=== PATIENT | female | born 1965 | race African-American/Black ===

== ENCOUNTER 2023-05-29 23:03 | Observation (INO) | payer OTHER ==
[~2023-05-29 23:03] MED LIST: Iopamidol-370 76% 500 ML MDV (1 ML CHARGE) ONE
[2023-05-29 23:32] LABS: #Monocytes 0.4 thou/uL (0.11-0.59); #Neutrophils 1.7 thou/uL (1.40-6.50); %Basophils 0.6 % (0.0-1.0); %Eosinophils 0.6 % (0.0-10.0); %Lymphocytes 37.4 % (21.0-51.0); %Monocytes 12.9 % (0.0-10.0); %Neutrophils 48.5 % (42.0-75.0); Hematocrit 34.3 % (36.0-47.0); Hemoglobin 11.3 g/dL (12.0-16.0); Mean Corpuscular HGB CONC 32.9 g/dL (32.0-36.0); Mean Corpuscular Hemoglobin 27.9 pg (27.0-31.0); Mean Corpuscular Volume 84.7 fl (78.0-98.0); Mean Platelet Volume 9.1 fL (7.4-10.4); Platelet Count 158 10x3/uL (130-400); RBC Distribution Width 14.9 % (11.5-14.5); Red Blood Cell (RBC) Count 4.05 mill/uL (4.20-5.40); White Blood Cell (WBC) Count 3.4 10x3/uL (4.8-10.8)
[2023-05-29 23:57] LABS: ALT (SGPT) 12 U/L (8-55); AST (SGOT) 18 U/L (5-34); Albumin 3.9 g/dL (3.5-5.0); Alkaline Phosphatase 70 U/L (40-110); Anion Gap 15 mmol/L (10-20); BUN (Urea Nitrogen) 13 mg/dL (9.8-20.1); Bilirubin, Total 0.3 mg/dL (0.2-1.2); Calc. Creatinine Clearance 0 mL/min (70-130); Carbon Dioxide 17 mmol/L (22-29); Chloride 113 mmol/L (98-107); Estimated GFR 91; Globulin 2.7 g/dL (2.4-3.5); Glucose 103 mg/dL (70-105); Magnesium 1.7 mg/dL (1.6-2.6); Potassium 3.5 mmol/L (3.5-5.1); Protein, Total 6.6 g/dL (6.0-8.3); Sodium 141 mmol/L (136-145)
[2023-05-29 23:58] LABS: Troponin I Less than 0.010 ng/mL (< 0.028)
[2023-05-30 00:42] LABS: Calcium 9.4 mg/dL (7.8-10.44)
[2023-05-30] MEDS ORDERED: Acetaminophen 500 MG TAB ONE (01:47)
[2023-05-30] MEDS ORDERED: Magnesium 2 GM/50 ML BAG (IN WATER) ONE (01:47)
[2023-05-30 02:27] LABS: Bacteria/HPF 1+ HPF (None Seen); Bilirubin Negative (Negative); Blood, Urine Negative (Negative); CAUTI Indications for Culture Alt mental st,lethar; Calcium Oxalate Crystals Rare HPF (None Seen); Clarity Clear (Clear); Glucose, Urine (Dipstick) Normal (Negative); Ketone, Urine 10 mg/dL (Negative); Leukocyte Negative Leu/uL (Negative); Nitrite Negative (Negative); Protein, Urine (Dipstick) 50 mg/dL (Neg-Trace); RBC/HPF 21-50 HPF (0-3); Urobilinogen Normal mg/dL (Less than 2); WBC/HPF None Seen HPF (0-3); pH, Urine 6.5 (5.0-9.0)
[2023-05-30 02:28] LABS: Specific Gravity, Urine 1.062 (1.002-1.036)
[2023-05-30 02:29] LABS: Urine Culture Reflex No No
[2023-05-30 02:35] LABS: Amphetamine Not Detected (NotDetected); Barbiturates Screen Not Detected (NotDetected); Benzodiazepine Screen Detected (NotDetected); Cocaine Metabolite Screen Not Detected (NotDetected); Methadone Not Detected (NotDetected); Methamphetamine Not Detected (NotDetected); Opiate Screen Detected (NotDetected); Oxycodone Screen Not Detected (NotDetected); Phencyclidine (PCP) Not Detected (NotDetected); THC/Cannabinoid Screen Not Detected (NotDetected); Tricyclic Screen Not Detected (NotDetected)
[2023-05-30 02:49] LABS: Acetaminophen Less than 10 mcg/mL (10.0-30.0); Alcohol Less than 10.0 mg/dL (Less than 10); Salicylate Less than 8.0 mg/dL (15.0-30.0)
[2023-05-30] MEDS ORDERED: Ondansetron ODT 4 MG TAB PO PRN (03:15)
[2023-05-30] MEDS ORDERED: Ondansetron PF 4 MG/2 ML Vial IVP PRN (03:15)
[2023-05-30] MEDS ORDERED: HumaLOG 300 UNITS/3 ML VIAL SC PRN ×2 (03:46)
[2023-05-30] MEDS ORDERED: Glucagon 1 MG/ML KIT IM PRN (03:46)
[2023-05-30] MEDS ORDERED: Dextrose 50% Abboject 50 ML SYRINGE SLOW IVP PRN (03:46)
[2023-05-30] MEDS ORDERED: Dextrose 5% in Water 1,000 ML IV PRN (03:46)
[2023-05-30] MEDS ORDERED: Acetaminophen 325 MG TAB PO PRN (03:51)
[2023-05-30] MEDS ORDERED: SUMAtriptan Succinate 50 MG TAB PO PRN (04:57)
[2023-05-30] MEDS ORDERED: Non-Formulary Item 1 EACH (Ibandronate Sodium [Ibandronate Sodium] 150 MG) PO SCH (05:00)
[2023-05-30 05:13] VITALS: BMI 27.9
[2023-05-30] MEDS ORDERED: Potassium Chloride 20 MEQ TAB ONE (08:14)
[2023-05-30] MEDS ORDERED: Folic Acid 1 MG TAB ONE (08:14)
[2023-05-30 08:37] LABS: Cardiac Risk 1.6 (Less than 4.5)
[2023-05-30] MEDS: Folic Acid 1 MG TAB PO SCH (08:43)
[2023-05-30] MEDS: Potassium Chloride 20 MEQ TAB PO SCH ×2 (08:46→20:00)
[2023-05-30] MEDS: CeleCOXIB 100 MG CAP PO SCH ×2 (08:57→20:01)
[2023-05-30] MEDS: Aripiprazole 10 MG TAB PO SCH (08:57)
[2023-05-30] MEDS: Topiramate 100 MG TAB PO SCH ×2 (08:58→20:01)
[2023-05-30] MEDS: Leflunomide 10 mg Tablet PO SCH (08:58)
[2023-05-30] MEDS: Rosuvastatin 5 MG TAB PO SCH (08:58)
[2023-05-30] MEDS: Hydroxychloroquine Sulfate 200 MG TAB PO SCH (08:58)
[2023-05-30] MEDS ORDERED: Methocarbamol 500 MG TAB PO SCH (09:00)
[2023-05-30] MEDS ORDERED: Propranolol HCl LA 60 MG CAP PO SCH (09:00)
[2023-05-30] MEDS ORDERED: Semaglutide [Ozempic] 0.25 MG SC SCH (09:00)
[2023-05-30] MEDS ORDERED: Amlodipine 5 MG TAB PO SCH ×2 (09:00→15:45)
[2023-05-30] MEDS ORDERED: ABATACEPT 125 MG SC SCH (09:00)
[2023-05-30] MEDS: Propranolol HCl LA 60 MG CAP PO SCH (11:47)
[2023-05-30] MEDS ORDERED: Amlodipine 10 MG TAB PO SCH (15:45)
[2023-05-31 04:32] LABS: #Eosinphils 0.1 thou/uL (0.0-0.7); #Monocytes 0.6 thou/uL (0.11-0.59); #Neutrophils 2.4 thou/uL (1.40-6.50); %Basophils 0.6 % (0.0-1.0); %Lymphocytes 36.4 % (21.0-51.0); %Monocytes 12.2 % (0.0-10.0); %Neutrophils 49.8 % (42.0-75.0); Hematocrit 33.2 % (36.0-47.0); Hemoglobin 10.8 g/dL (12.0-16.0); Mean Corpuscular HGB CONC 32.5 g/dL (32.0-36.0); Mean Platelet Volume 9.5 fL (7.4-10.4); Platelet Count 182 10x3/uL (130-400); RBC Distribution Width 14.4 % (11.5-14.5); White Blood Cell (WBC) Count 4.8 10x3/uL (4.8-10.8)
[2023-05-31 04:55] LABS: Anion Gap 12 mmol/L (10-20); BUN (Urea Nitrogen) 11 mg/dL (9.8-20.1); Calc. Creatinine Clearance 101 mL/min (70-130); Carbon Dioxide 20 mmol/L (22-29); Chloride 112 mmol/L (98-107); Estimated GFR 90; Glucose 85 mg/dL (70-105); Magnesium 2.1 mg/dL (1.6-2.6); Potassium 4.4 mmol/L (3.5-5.1); Sodium 140 mmol/L (136-145)
[2023-05-31] MEDS: CeleCOXIB 100 MG CAP PO SCH (08:55)
[2023-05-31] MEDS: Propranolol HCl LA 60 MG CAP PO SCH (08:56)
[2023-05-31] MEDS: Folic Acid 1 MG TAB PO SCH (08:56)
[2023-05-31] MEDS: Rosuvastatin 5 MG TAB PO SCH (08:56)
[2023-05-31] MEDS: Potassium Chloride 20 MEQ TAB PO SCH (08:56)
[2023-05-31] MEDS: Topiramate 100 MG TAB PO SCH (08:57)
[2023-05-31] MEDS: Aripiprazole 10 MG TAB PO SCH (08:57)
[2023-05-31] MEDS: Leflunomide 10 mg Tablet PO SCH (08:57)
[2023-05-31] MEDS: Hydroxychloroquine Sulfate 200 MG TAB PO SCH (08:57)
[2023-05-31] MEDS ORDERED: Amlodipine 5 MG TAB PO SCH ×2 (09:00→11:15)
[2023-05-31] MEDS ORDERED: Pregabalin 50 MG CAP PO SCH (15:00)
[2023-05-31 15:36] VITALS: BP 158/84; TEMP 98.2
[2023-06-01] MEDS ORDERED: Amlodipine 10 MG TAB PO SCH (09:00)
[2023-06-02] MEDS ORDERED: FLU VACC QS2023-24(6MOS UP)/PF 60 MCG/0.5 ML SYRINGE IM ONE (16:15)
== END 2023-05-31 17:57 | disposition home or self-care (01) ==
LOC: ERS 23:03 → ERHOLD 05-30 02:27 → 2SE 05-30 15:43
PROVIDERS: ADMIT Family Medicine; ATTEND Family Medicine
DX: G93.41 Metabolic encephalopathy (principal); E05.80 Other thyrotoxicosis without thyrotoxic crisis or storm; R94.31 Abnormal electrocardiogram [ECG] [EKG]; D53.9 Nutritional anemia, unspecified; G43.909 Migraine, unspecified, not intractable, without status migrainosus; E11.9 Type 2 diabetes mellitus without complications; F41.9 Anxiety disorder, unspecified; F32.A Depression, unspecified; I10 Essential (primary) hypertension; M81.0 Age-related osteoporosis without current pathological fracture; M06.9 Rheumatoid arthritis, unspecified; J98.11 Atelectasis; Z88.0 Allergy status to penicillin; Z88.5 Allergy status to narcotic agent; Z88.2 Allergy status to sulfonamides; Z79.899 Other long term (current) drug therapy; Z79.84 Long term (current) use of oral hypoglycemic drugs; Z90.710 Acquired absence of both cervix and uterus
CPT/HCPCS: 36415; 36416; 70450; 70496; 70498; 70553; 71045; 80048; 80053; 80061; 80306; 80307; 81001; 83735; 84146; 84439; 84443; 84480; 84484; 85025; 93005; 96365; G0378; J3475; Q9967